=== PATIENT | female | born 1970 | race Caucasian/White ===

== ENCOUNTER → 2017-06-29 | Outpatient (CLI) | payer OTHER ==
[~2017-06-29] MED LIST: ALBUAER2 INH; CYM60 PO; LSN/10125 PO; MELO7.5T5 PO; OMEP10CA2 PO; SNG10 PO; TOPI25TA99 PO; ULT/50 PO
== END | disposition home or self-care (01) ==
LOC: C.LAB1850 08:59
PROVIDERS: ATTEND Obstetrics & Gynecology
DX: Z11.3 Encounter for screening for infections with a predominantly sexual mode of transmission (principal)

== ENCOUNTER → 2017-08-07 | Outpatient (CLI) | payer OTHER ==
--- NOTE | 2017-08-10 13:33 | MAMMOGRAPHY REPORT ---
BILATERAL DIGITAL SCREENING MAMMOGRAM TOMOSYNTHESIS WITH CAD: 08/07/2017 CLINICAL HISTORY: Routine screening. Patient has no complaints. TECHNIQUE: Breast tomosynthesis in addition to standard 2D mammography was performed. Current study was also evaluated with a Computer Aided Detection (CAD) system. COMPARISON: Comparison is made to exams dated: 07/03/2015 mammogram, 05/24/2014 mammogram, 03/11/2013 ma mmogram, 02/25/2012 mammogram - [facility], and 06/01/2008. BREAST COMPOSITION: There are scattered areas of fibroglandular density in both breasts. FINDINGS: No suspicious masses, calcifications, or areas of architectural distortion are noted in ei ther breast. There has been no significant interval change compared to prior exams. IMPRESSION: ACR BI-RADS CATEGORY 1: NEGATIVE There is no mammographic evidence of malignancy. A 1 year screening mammogram is recommended. The pa tient will receive written notification of the results. Approximately 10% of breast cancers are not detected with mammography. A negative mammographic report should not delay biopsy if a clinically suggestive mass is present. Rosa Carmichael M.D. ah/:08/07/2017 16:43:03 Roof Technician: Selena MARTINEZ(R)(M), [facility] letter sent: Normal 1/2 BI-RADS Code: ACR BI-RADS Category 1: Negative
== END | disposition home or self-care (01) ==
LOC: C.MAMM 15:31
PROVIDERS: ATTEND Obstetrics & Gynecology
DX: Z12.31 Encounter for screening mammogram for malignant neoplasm of breast (principal)

== ENCOUNTER → 2017-12-30 | Outpatient (CLI) | payer OTHER ==
[~2017-12-30] MED LIST changes: +DULO60CA44 PO; +MAGNESIUM PO; -MELO7.5T5 PO; +MONT1TAB5 PO; +PRLSR20 PO; -SNG10 PO; +TRAM-10 PO; -ULT/50 PO; +VNTHFA/IN INH
--- NOTE | 2017-12-30 09:42 | DIAGNOSTIC IMAGING REPORT ---
MRI OF THE CERVICAL SPINE WITHOUT CONTRAST CLINICAL HISTORY: Severe neck and upper extremity pain with bilateral upper extremity numbness. Cervical cord compression. COMPARISON: Cervical spine MRI March 03, [address] June 02, 2016. TECHNIQUE: Utilizing a 1.5 Kimmie magnet and dedicated coil, multiplanar, multiecho imaging of the cervical spine was performed without IV contrast. FINDINGS: Alignment of the cervical spine is anatomic. Vertebral body heights are maintained. There is no suspicious marrow replacement. A 1 cm T1 and T2 hyperintense lesion within the C6 vertebral body is similar to prior exam. This reflects a hemangioma. Cervical cord signal and caliber are normal. No intracanalicular mass or fluid collection. Paravertebral soft tissues are unremarkable. Axial images are compromised by motion artifact. C2-C3: The central canal and the neural foramen are patent. C3-C4: The central canal and neural foramen are patent. C4-C5: There is minimal posterior disc osteophyte complex. Central canal is patent. There is mild to moderate bilateral neural foraminal stenosis. This is similar to MRI of March 03, 2015. C5-C6: There is minimal posterior disc osteophyte complex. There is slight effacement of the anterior thecal sac without cord deformity. Moderate left and mild right neural foraminal stenosis is noted at this level. This is similar to prior MRI. C6-C7: There is minimal posterior disc osteophyte complex. Central canal and neural foramen are patent. C7-T1: Central canal and neural foramen are patent. IMPRESSION: 1. Normal cervical cord signal and caliber. 2. No significant change since MRI of March 03, 2015. Posterior disc osteophyte complexes at C4-C5 and C5-C6 result in mild effacement of the anterior thecal sac without cord deformity. Mild to moderate bilateral neural foraminal stenosis at these levels which is similar to prior study. Electronically signed by: Teofilo Roy M.D. 12/30/2017 9:41 AM Dictated Date/Time: 12/30/2017 9:33 AM
== END | disposition home or self-care (01) ==
LOC: C.MRIBC 08:42
PROVIDERS: ATTEND Orthopaedic Surgery Orthopaedic Surgery of the Spine
DX: M47.12 Other spondylosis with myelopathy, cervical region (principal)

== ENCOUNTER → 2018-01-04 | Outpatient (CLI) | payer OTHER ==
[~2018-01-04] MED LIST changes: -ALBUAER2 INH; -CYM60 PO; -OMEP10CA2 PO
[2018-01-04 13:04] LABS: BASO % 0.3 %; BASO ABS # 0.02 K/uL (0-0.2); EOS % 1.8 %; EOS ABS # 0.13 K/uL (0-0.5); HEMATOCRIT 38.3 % (37-47); HEMOGLOBIN 12.9 g/dL (12.0-16.0); IG# 0.02 K/uL (0.00-0.02); LYMPH % 27.8 %; LYMPH ABS # 2.05 K/uL (1.2-3.4); MEAN CELL VOLUME 89.1 fL (80-100); MEAN CORPUSCULAR HGB CONC 33.7 g/dl (32-36); MEAN PLATELET VOLUME 9.4 fL (7.4-10.4); MONO % 6.9 %; MONO ABS # 0.51 K/uL (0.11-0.59); NEUT % 62.9 %; NEUT ABS # 4.65 K/uL (1.4-6.5); PLATELET COUNT 350 K/uL (130-400); RED CELL DISTRIBUTION WIDTH CV 13.2 % (11.5-14.5); RED CELL DISTRIBUTION WIDTH SD 43.1 fL (36.4-46.3); WHITE BLOOD COUNT 7.38 K/uL (4.8-10.8)
== END | disposition home or self-care (01) ==
LOC: C.LAB 12:04
PROVIDERS: ATTEND Orthopaedic Surgery Orthopaedic Surgery of the Spine
DX: Z01.812 Encounter for preprocedural laboratory examination (principal)

== ENCOUNTER 2018-01-11 08:19 | Inpatient (IN) | payer OTHER ==
[2018-01-01 16:01] VITALS: Ht 160 cm; Wt 101.4 kg
--- NOTE | 2018-01-10 20:05 | HISTORY & PHYSICAL EXAMINATION ---
DATE OF ADMISSION: 01/11/2018 CHIEF COMPLAINT: Neck pain, arm pain, trapezius pain. She is being preoped for surgery. HISTORY: Ashli is delightful. She is a 47-year-old female. She has cervical spine pathology, osteophyte formation, discogenic issues, cord compression C4-C5 and C5-C6 which is progressive. She denies any fevers, sweats, chills, bowel or bladder issues. MEDICAL HISTORY: Hypertension, asthma, obesity. She has problem with spine issues, neck problems, acid reflux. No kidney stones. No history of carcinoma. No anesthesia complications. Smoking negative and drugs negative. PAST SURGICAL HISTORY: Hysterectomy and section. ALLERGIES: PENICILLIN AND SULFA. MEDICATIONS: Lisinopril, Prilosec, topiramate. REVIEW OF SYSTEMS: She denies any blurred vision, double vision, tinnitus, vertigo. She does have headaches, I believe they are cervical migraine headaches. Denies asthma, wheezing, shortness of breath. Denies chest pain, angina, palpitations. Denies nausea, vomiting, constipation. Denies urgency, frequency, dysuria or loss of bowel or bladder function. Major complaints are neck pain, arm pain, trapezius pain and weakness. OBJECTIVE: GENERAL: She is 5 feet 3 inches, she is 200 pounds. She is in distress. VITAL SIGNS: Blood pressure 140/80, pulse 80, respiratory rate 16, temperature 97.4. HEENT: Pupils react to light and accommodation. Ear, nose and throat clear. CARDIAC: Normal S1, S2. No S3. LUNGS: Clear. ABDOMEN: Soft, nontender. Bowel sounds present in all quadrants. NEUROLOGIC: She has pain with rotation and side bending. Positive Spurling maneuver and Lhermitte sign. She has weakness with dorsiflexion of her wrist and plant clerk strength. She has weakness of triceps function. Images demonstrate 2-level pathology. IMPRESSION: Delightful young lady with 2-level pathology, C4-C5, C5-C6. DISPOSITION: Includes ACDF cervical spine C4-C5 and C5-C6 with iliac crest bone graft.
[~2018-01-11] VITALS: Ht 160 cm; Wt 101.4 kg
[2018-01-11] VITALS (16 sets, daily range): BP systolic 121–146; BP diastolic 74–88; PULSE 74–120; TEMP 36.4–37.1; O2SAT 96–100
[~2018-01-11 08:19] MED LIST changes: +CEFAZOLIN 2000MG IV PUSH 15 ML IV SCH; +LACTATED RINGER'S 1000ML 1,000 ML IV SCH; +NSS 1000ML IV SCH
[2018-01-11] MEDS ORDERED: MIDAZOLAM HCL 1 MG/ML 2ML VIAL ONE (08:49)
[2018-01-11] MEDS ORDERED: FENTANYL CITRATE INJ 50 MCG/1 ML 2 ML VIAL ONE (08:49)
[2018-01-11] MEDS ORDERED: ONDANSETRON INJ 2 MG/ML 2 ML VIAL ONE (09:16)
[2018-01-11] MEDS ORDERED: LIDOCAINE HCL 2% 2 ML VIAL (20MG/ML) ONE (09:16)
[2018-01-11] MEDS ORDERED: CISATRACURIUM BESYLATE IV SOLN 2 MG/ML 10 ML VIAL ONE (09:16)
[2018-01-11] MEDS ORDERED: DEXAMETHASONE SOD INJ 4 MG/ML VIAL ONE (09:16)
[2018-01-11] MEDS ORDERED: PROPOFOL IV EMULSION 10 MG/ML 20 ML VIAL IV ONE (09:16)
[2018-01-11] MEDS ORDERED: GLYCOPYRROLATE INJ 0.2 MG/ML VIAL ONE (09:16)
[2018-01-11] MEDS ORDERED: EpHEDrine SULFATE 50MG/5ML SYR ONE (09:16)
[2018-01-11] MEDS ORDERED: NEOSTIGMINE METHYLSULFATE 5 MG/5 ML SYR ONE (09:16)
[2018-01-11] MEDS ORDERED: LARYING-O-JET KIT (LTA) ONE (09:16)
[2018-01-11] MEDS ORDERED: BUPIVACAINE/EPINEPHRINE 0.5% MPF 1:200,000 30 ML VIAL ONE ×2 (09:57→12:33)
[2018-01-11] MEDS ORDERED: THROMBIN FOR SOLN 20000 UNIT KIT ONE (09:57)
[2018-01-11] MEDS ORDERED: GELATIN SPONGE SZ 100 ONE (09:57)
[2018-01-11] MEDS ORDERED: BACITRACIN 50000 UNIT VIAL ONE (09:57)
[2018-01-11] MEDS ORDERED: CLINDAMYCIN 600 MG/54 ML D5W IV ONE (10:04)
[2018-01-11] MEDS ORDERED: NURSING VERBAL MED ORDER ONE (10:15)
--- NOTE | 2018-01-11 10:17 | History & Physical Bridge Note ---
H&P Re-Evaluation Bridge Note: I have examined the patient, reviewed the History & Physical and in the interval since the performance of the History & Physical I have noted the following changes of clinical significance: No changes noted
[2018-01-11] MEDS ORDERED: FLUMAZENIL 0.1 MG/1 ML 10 ML VIAL IV PRN (11:00)
[2018-01-11] MEDS ORDERED: LABETALOL HCL IV 5 MG/ML 20ML IV PRN (11:00)
[2018-01-11] MEDS ORDERED: PROMETHAZINE HCL INJ 12.5 MG in SODIUM CHLORIDE 0.9% 50ML 50 ML IV PRN (11:00)
[2018-01-11] MEDS ORDERED: NALOXONE HCL 0.4 MG/1 ML VIAL/CARP IV PRN ×2 (11:00→13:00)
[2018-01-11] MEDS ORDERED: ATROPINE SULFATE 0.1 MG/ML 5ML SYR IV PRN (11:00)
[2018-01-11] MEDS ORDERED: ONDANSETRON INJ 2 MG/ML 2 ML VIAL IV PRN ×2 (11:00→13:00)
[2018-01-11] MEDS ORDERED: EpHEDrine SULFATE INJ 50 MG/ML AMP IV PRN (11:00)
[2018-01-11] MEDS ORDERED: HYDROmorphone INJ 2 MG/ML SYR/VIAL ONE (11:18)
--- NOTE | 2018-01-11 12:45 | [facility] Post Operative Brief Note ---
Immediate Operative Summary Operative Date Jan 11, 2018. Pre-Operative Diagnosis Two-level spinal cord pressure, C4-C5 and C5-C6 Post-Operative Diagnosis Two-level spinal cord pressure, C4-C5 and C5-C6 Procedure(s) Performed C4-C5, C5-C6 Anterior Cervical Discectomy and Fusion with Iliac Crest Bone Graft Surgeon Dr. Wero Posada Automatic Punch Press Operator Surgeon(s) César Soto PA-C Estimated Blood Loss 50mL Findings Consistent with Post-Op Diagnosis Specimens none per surgeon Dr. Wero Posada Anesthesia Type General Complication(s) none Disposition Disposition: Recovery Room / PACU
[2018-01-11] MEDS ORDERED: ACETAMINOPHEN IV 100 ML IV PRN (13:00)
[2018-01-11] MEDS ORDERED: RACEPINEPHRINE 2.25% NEBU SOLN 0.5 ML VIAL INH PRN (13:00)
[2018-01-11] MEDS ORDERED: ALBUTEROL HFA 8 GM INHALER INH PRN (13:00)
[2018-01-11] MEDS: HYDROmorphone INJ 0.5 MG/0.5 ML SYR IV PRN ×8 (13:00→13:46)
[2018-01-11] MEDS ORDERED: DEXAMETHASONE INJ 8 MG in SYRINGE 0 ML IV PRN (13:00)
[2018-01-11] MEDS ORDERED: HYDROmorphone INJ 0.5 MG/0.5 ML SYR IV PRN (13:00)
[2018-01-11] MEDS ORDERED: MAGNESIUM HYDROXIDE SUSP 30 ML UDC PO PRN (13:00)
[2018-01-11] MEDS ORDERED: LORAZEPAM INJ 0.5 MG in SYRINGE 0.75 ML IV PRN (13:00)
--- NOTE | 2018-01-11 13:14 | DIAGNOSTIC IMAGING REPORT ---
SPINE ONE VIEW, ANY LEVEL CLINICAL HISTORY: ACDF C4-C5/C5-C6 COMPARISON STUDY: Cervical spine MRI December 30, 2017. Fluoroscopy time: 3.6 seconds. FINDINGS: 2 fluoroscopic images were obtained. These images demonstrate a C4-C5 anterior discectomy and fusion. There may also be a C5-C6 anterior discectomy and fusion which is secured by overlying soft tissues. IMPRESSION: Fluoroscopic images demonstrating a C4-C5 anterior discectomy and fusion and suspected C5-C6 anterior discectomy and fusion which is partially obscured on the study. Electronically signed by: Teofilo Roy M.D. 01/11/2018 1:13 PM Dictated Date/Time: 01/11/2018 1:10 PM
--- NOTE | 2018-01-11 13:55 | Anesthesiology Progress Note ---
Anesthesia Post Op Note Date & Time Jan 11, 2018 at 13:55 Vital Signs Pain Intensity: 4 Vital Signs Past 12 Hours Date Time Temp Pulse Resp B/P (MAP) Pulse Ox O2 Delivery O2 Flow Rate FiO2 01/11/18 13:45 37.1 106 16 134/83 99 Nasal Cannula 2 01/11/18 13:35 108 16 159/86 100 Nasal Cannula 2 01/11/18 13:25 109 16 155/83 100 Nasal Cannula 2 01/11/18 13:15 100 16 154/94 100 Oxymask 10 01/11/18 13:05 108 18 162/79 100 Oxymask 10 01/11/18 12:55 104 16 161/102 100 Oxymask 10 01/11/18 12:49 36.1 107 16 129/86 100 Oxymask 10 01/11/18 09:17 100 Room Air 01/11/18 09:14 36.9 75 18 123/74 100 Room Air Notes Mental Status: alert / awake / arousable, participated in evaluation Pt Amnestic to Procedure: Yes Nausea / Vomiting: adequately controlled Pain: adequately controlled Airway Patency, RR, SpO2: stable & adequate BP & HR: stable & adequate Hydration State: stable & adequate Anesthetic Complications: no major complications apparent
--- NOTE | 2018-01-11 14:13 | OPERATIVE REPORT ---
DATE OF OPERATION: 01/11/2018 PREOPERATIVE DIAGNOSIS: Spinal cord compression and spondylosis, cervical spine, C4-C5 and C5-C6. POSTOPERATIVE DIAGNOSIS: Same. PROCEDURE: Included a 2-level ACDF of the cervical spine, C4-C5 and C5-C6; complete discectomy anterior interbody spacer and structural left iliac crest autograft. SURGEON: Dr. Posada. RAMP ATTENDANT: César Soto PA-C. COMPLICATIONS: Zero. BLOOD LOSS: Less than 50. DESCRIPTION OF PROCEDURE: The patient was taken to the operating room and general intubated anesthetic provided to the patient, kept supine, scrubbed, prepped and draped sterile. We made a transverse skin incision at cervical spine roughly at the cervical 5 level. We marked the C4-C5 interspace using C-arm guidance, we did a complete discectomy at C4-C5 back through the PLL, we were lateral to the uncovertebral joints, no further lateral. We evacuated every possible piece of disk material at C4-C5, cervical spine. We did the same operation to C5-C6 interval with a smaller space. We were able to get back to the PLL decompressed the spinal cord. We then made a skin incision then went to the iliac crest, made a skin incision, fascial incision on this area. She is very obese individual, we were 3 inches just to get to the iliac crest, harvested a structural autograft we used in the implants. Skin incision and fascia incision and again harvesting the bone. We then used the coalition device by the [employer]. This was packed with iliac crest. This was placed in the discectomy intervals at 4-5 and 5-6. They measured approximately 5 mm in height, 12 mm in depth, and 14 mm across. I was pleased with the footprint. We put in the spacers, began our closures, first we irrigated thoroughly with closed over a Emery drain with 4-0 Monocryl on the skin area. The iliac crest was closed with #1 Vicryl, 2-0 and 3-0 nylon. Sterile dressings applied. Marcaine infused into the area. The patient then extubated to PACU stable. No apparent interoperative complications. I attest to the content of the Intraoperative Record and any orders documented therein. Any exception s are noted below.
[2018-01-11] MEDS: HYDROmorphone INJ 1 MG/ML SYR IV PRN ×3 (14:59→22:29)
[2018-01-11] MEDS: SODIUM CHLORIDE 0.9% 1000ML 1,000 ML IV SCH (15:00)
[2018-01-11] MEDS: CLINDAMYCIN IV 600 MG in DEXTROSE 5% 50ML 50 ML IV SCH (18:16)
[2018-01-11] MEDS: MAGNESIUM OXIDE 400 MG TAB PO SCH (20:27)
[2018-01-11] MEDS: DOCUSATE SODIUM 100 MG CAP PO SCH (20:27)
[2018-01-11] MEDS: TOPIRAMATE 25 MG TAB PO SCH (20:28)
[2018-01-11] MEDS: OXYCODONE/ACETAMINOPHEN 5-325 TAB PO PRN (20:30)
[2018-01-12] VITALS (18 sets, daily range): BP systolic 107–140; BP diastolic 68–86; PULSE 68–100; TEMP 36.5–37.5; O2SAT 95–100
[2018-01-12] MEDS: HYDROmorphone INJ 1 MG/ML SYR IV PRN ×4 (01:33→22:31)
[2018-01-12] MEDS: SODIUM CHLORIDE 0.9% 1000ML 1,000 ML IV SCH (01:33)
[2018-01-12] MEDS: CLINDAMYCIN IV 600 MG in DEXTROSE 5% 50ML 50 ML IV SCH ×2 (01:33→09:25)
[2018-01-12] MEDS: OXYCODONE/ACETAMINOPHEN 5-325 TAB PO PRN ×5 (04:02→23:30)
[2018-01-12] MEDS: DOCUSATE SODIUM 100 MG CAP PO SCH ×2 (08:49→21:12)
[2018-01-12] MEDS: MAGNESIUM OXIDE 400 MG TAB PO SCH ×2 (08:49→21:13)
[2018-01-12] MEDS: LISINOPRIL/HCTZ 10/12.5MG TAB PO SCH (08:49)
[2018-01-12] MEDS: DULOXETINE HCL 60 MG CAP PO SCH (08:49)
[2018-01-12] MEDS: MONTELUKAST SOD 10 MG TAB PO SCH (08:50)
[2018-01-12] MEDS: TOPIRAMATE 25 MG TAB PO SCH ×2 (08:50→21:37)
[2018-01-12] MEDS ORDERED: NURSING DECISION MEDICATION ORDER SCH (09:15)
[2018-01-12] MEDS: PANTOprazole SOD 40 MG TAB PO SCH (09:24)
[2018-01-12] MEDS ORDERED: COUGH DROP (SUGAR FREE) LOZ 24 LOZ/1 BOX LOZ PRN (10:15)
--- NOTE | 2018-01-12 11:00 | Anesthesiology Progress Note ---
Anesthesia Post Op Note Date & Time Jan 12, 2018 at 10:59 Vital Signs Pain Intensity: 10.0 Vital Signs Past 12 Hours Date Time Temp Pulse Resp B/P (MAP) Pulse Ox O2 Delivery O2 Flow Rate FiO2 01/12/18 10:18 36.5 93 12 140/86 99 Room Air 01/12/18 08:15 36.8 76 16 135/85 100 Room Air 01/12/18 08:15 Room Air 01/12/18 07:56 68 12 100 Room Air 01/12/18 06:36 98 Room Air 01/12/18 06:17 36.5 83 20 130/84 100 Nasal Cannula Humidified Oxygen 01/12/18 04:06 36.7 88 24 118/75 100 Nasal Cannula 2.0 Humidified Oxygen 01/12/18 03:18 94 16 100 Nasal Cannula 3.0 01/12/18 02:15 36.7 98 20 127/77 99 Nasal Cannula 2.0 Humidified Oxygen 01/11/18 23:45 Nasal Cannula 2.0 01/11/18 23:45 36.7 87 16 126/82 99 Nasal Cannula 2.0 Humidified Oxygen 01/11/18 23:33 92 16 100 Nasal Cannula 3.0 Notes Mental Status: alert / awake / arousable, participated in evaluation Pt Amnestic to Procedure: Yes Nausea / Vomiting: adequately controlled Airway Patency, RR, SpO2: stable & adequate BP & HR: stable & adequate Hydration State: stable & adequate Anesthetic Complications: no major complications apparent Awake, alert, pleased with anesthesia care. VSS.
[2018-01-12] MEDS ORDERED: HYDR-4383 PO (12:52)
--- NOTE | 2018-01-12 12:53 | Discharge Instructions ---
Discharge Instructions Date of Service Jan 12, 2018. Admission Reason for Admission: Cord Compression Discharge Discharge Diagnosis / Problem: same Discharge Goals Goal(s): Improve function Activity Recommendations Activity Limitations: as noted below Lifting Limitations: gradually increase as tolerated home and recover . Current Hospital Diet Patient's current hospital diet: Clear Liquid Diet Discharge Diet Recommended Diet: Full Liquid Diet Procedures Procedures Performed: C4-C5, C5-C6 Anterior Cervical Discectomy and Fusion with Iliac Crest Bone Graft Pending Studies Studies pending at discharge: no Medical Emergencies . Who to Call and When: Medical Emergencies: If at any time you feel your situation is an emergency, please call 911 immediately. . Non-Emergent Contact Non-Emergency issues call your: Primary Care Provider . "Provider Documentation" section prepared by Wero Posada. . VTE Core Measure Inpt VTE Proph given/why not?: Treatment not indicated
--- NOTE | 2018-01-12 13:09 | ORTHOPEDICS PROGRESS NOTE ---
DATE: 01/12/2018 Moderate complaints of pain. Still some paresthesias, numbness and tingling. No chest pain, shortness of breath or calf tenderness. OBJECTIVE: VITAL SIGNS: Stable, afebrile. GENERAL: Alert and oriented. ASSESSMENT: Status post reconstructive spinal surgery, out now about 22 hours post. DISPOSITION: Includes instructions, precautions, education, up and ambulate. Hopefully, discharge home tomorrow, 01/13/2018, after dressing change.
[2018-01-12] MEDS ORDERED: NURSING VERBAL MED ORDER ONE (21:15)
[2018-01-13] MEDS: HYDROmorphone INJ 1 MG/ML SYR IV PRN ×2 (03:30→06:23)
[2018-01-13 04:00] VITALS: BP 128/80; PULSE 94; TEMP 36.5; O2SAT 100
[2018-01-13] MEDS: OXYCODONE/ACETAMINOPHEN 5-325 TAB PO PRN ×2 (04:22→09:12)
[2018-01-13 04:53] VITALS: PULSE 87; O2SAT 97
[2018-01-13] MEDS ORDERED: BISACODYL 10 MG SUPP PR PRN (06:00)
[2018-01-13] MEDS ORDERED: BISACODYL 5 MG TABEC PO PRN (06:00)
[2018-01-13 06:34] VITALS: BP 128/82; PULSE 92; TEMP 36.5; O2SAT 98
[2018-01-13] MEDS: PANTOprazole SOD 40 MG TAB PO SCH (07:27)
[2018-01-13] MEDS: DULOXETINE HCL 60 MG CAP PO SCH (07:27)
[2018-01-13] MEDS: MONTELUKAST SOD 10 MG TAB PO SCH (07:27)
[2018-01-13] MEDS: TOPIRAMATE 25 MG TAB PO SCH (07:27)
[2018-01-13] MEDS: LISINOPRIL/HCTZ 10/12.5MG TAB PO SCH (07:27)
[2018-01-13 07:30] VITALS: PULSE 94; O2SAT 97
[2018-01-13] MEDS ORDERED: HYDR-4079 PO (07:50)
[2018-01-13] MEDS: MAGNESIUM OXIDE 400 MG TAB PO SCH (09:11)
[2018-01-13] MEDS: DOCUSATE SODIUM 100 MG CAP PO SCH (09:11)
[2018-01-13 10:39] VITALS: BP 128/82; PULSE 94; TEMP 36.5; O2SAT 97
[2018-01-13 11:20] VITALS: PULSE 77; O2SAT 100
--- NOTE | 2018-01-14 12:02 | DISCHARGE SUMMARY ---
HOSPITAL COURSE: Ashli is a delightful patient. She had reconstructive cervical spine surgery. She is improved, stable. On the , discharged home, this is 48 hours post-surgery. Better motion, decreased pain, good functional ability. Alert, oriented, no chest pain, shortness of breath. Vital signs stable. ASSESSMENT: Status post cervical spine, multilevel surgery. DISPOSITION: Home rest, collar for support and a followup examination in the office in approximately 10 days.
== END 2018-01-13 12:30 | disposition home or self-care (01) | DRG 473 ==
LOC: C.ACU 08:19 → C.3E 12:53 → ENRESERV 13:58
PROVIDERS: ADMIT Orthopaedic Surgery Orthopaedic Surgery of the Spine; ATTEND Orthopaedic Surgery Orthopaedic Surgery of the Spine
PROC: 0QB30ZZ Excision of Left Pelvic Bone, Open Approach (ICD-10-PCS; principal; 2018-01-11 10:20)
PROC: 0RT30ZZ Resection of Cervical Vertebral Disc, Open Approach (ICD-10-PCS; principal; 2018-01-11 10:20)
PROC: 0RG20A0 Fusion of 2 or more Cervical Vertebral Joints with Interbody Fusion Device, Anterior Approach, Anterior Column, Open Approach (ICD-10-PCS; principal; 2018-01-11 10:20)
DX: M47.12 Other spondylosis with myelopathy, cervical region (principal); I10 Essential (primary) hypertension; J45.909 Unspecified asthma, uncomplicated; E66.9 Obesity, unspecified; Z79.899 Other long term (current) drug therapy; Z68.39 Body mass index [BMI] 39.0-39.9, adult; Z88.0 Allergy status to penicillin; Z88.2 Allergy status to sulfonamides